=== PATIENT | male | born 1960 | race Caucasian/White ===

== ENCOUNTER 2020-03-07 14:30 | Outpatient (CLI) | payer OTHER ==
--- NOTE | 2020-03-07 15:25 | RAD ---
Chest 2 views HISTORY: Fever. Positive COVID. FINDINGS: No comparison. Cardiac silhouette and pulmonary vasculature are unremarkable. Mediastinum i s midline. No confluent airspace consolidation, pneumothorax, or pleural fluid. IMPRESSION : No abnormalities are demonstrated.
== END 2020-03-07 14:31 | disposition home or self-care (01) ==
LOC: SCSRAD 14:30
PROVIDERS: ATTEND Internal Medicine
DX: U07.1 COVID-19 (principal)
CPT/HCPCS: 71046